=== PATIENT | male | born 1995 | race Asian ===

== ENCOUNTER 2020-02-28 11:04 | Emergency (ER) | payer SELFPAY ==
[~2020-02-28] VITALS: Ht 172.7 cm; Wt 81.6 kg
[~2020-02-28 11:04] MED LIST: IBUPROFEN600 MG ORAL
[2020-02-28 11:23] VITALS: BP 128/80
--- NOTE | 2020-02-28 11:24 | NUR ---
ED Nurse Note: ambulated into ED due to right hand swelling and pain x2days. Per pt, he was playing around with his friend and fell on the right hand. No trauma noted. CMS intact. NAD noted.
--- NOTE | 2020-02-28 11:30 | Emergency Room Report ---
History of Present Illness General Chief Complaint: Upper Extremity Injury Source: Patient Present Illness HPI Disclaimer: Please note that this report is being documented using DRAGON technology. This can lead to erroneous entry secondary to incorrect interpretation by the dictating instrument. HPI: 24-year-old [id number] male presents for evaluation of right hand pain and swelling. 2 days ago he was wrestling with a friend fell onto his right hand. Noted pain over the fourth and fifth digits and swelling over the dorsum of the hand. Denied pain in the thumb or index finger. Mild pain in the wrist. Took an onic-ctk-rlufxra anti-inflammatory without significant relief. Worsening swelling today. Denies numbness or tingling. No prior history of injury. Allergies: Coded Allergies: No Known Allergies (Unverified , 02/26/15) COVID-19 Screening Contact w/high risk pt: No Recent Travel to affected area: No Experienced COVID-19 symptoms?: No Nursing Documentation-[facility] Past Medical History: No Stated History Hx Cardiac Problems: Yes Review of Systems All Other Systems: negative except mentioned in HPI Physical Exam Vital Signs Date Time Temp Pulse Resp B/P (MAP) Pulse Ox O2 Delivery O2 Flow Rate FiO2 02/28/20 11:10 98.4 74 18 128/80 (96) 97 Room Air General: Awake and alert, no acute distress HEENT: NC/AT. EOMI. Resp: Normal work of breathing Skin: Intact. No abrasions, laceration or rash over the exposed skin MSK: Normal tone and bulk. Moving all extremities. Swelling and minor bruising over the dorsum of the right hand over the fourth and fifth metacarpals. Able to flex and extend all digits. No tenderness in anatomic snuffbox. Mild restriction on wrist flexion extension secondary to pain. No obvious deformity noted in the wrist. Neuro: Awake and alert. Mentating appropriately Procedures Splinting Splinting : Consent: Verbal Hand-Made Type: plaster Splint: ulnar Pre-Proc Neuro Vasc Exam: normal Patient Tolerated: Well Complications: None Medical Decision Making Diagnostic Impression: Primary Impression: Fracture of fourth metacarpal bone Additional Impression: Fracture of fifth metacarpal bone ER Course 24-year-old male presenting for evaluation of right hand pain and swelling. Given concern for fracture and x-ray was ordered of the right hand and wrist. X -ray shows fracture of the proximal fourth and fifth metacarpals with minimal displacement. Discussed with orthopedic surgery. He will be placed in an ulnar gutter splint and follow-up with orthopedics in 1 week for casting and reevaluation. Copies of his images will be provided on his discharge. Discussed need for follow-up and reasons to return to the emergency department. He understands and agrees with the treatment plan. Other X-Ray Diagnostic Results Other X-Ray Diagnostic Results #1: X-Ray ordered: Right hand # of Views/Limited Vs Complete: Complete Indication: Pain EP Interpretation: Yes Interpretation: other - Fracture of the fourth and fifth metacarpals Impression: Other - Fourth and fifth metacarpal fractures Electronically Signed by: Electronically signed by Dr. Jeffery Mathews Other X-Ray Diagnostic Results #2: X-Ray ordered: Left wrist # of Views/Limited Vs Complete: Complete Indication: Pain Interpretation: other - Fracture of fourth and fifth metacarpals, no obvious wrist injury Impression: Other - Fracture of fourth and fifth metacarpals Electronically Signed by: Electronically signed by Dr. Jeffery Mathews Last Vital Signs Date Time Temp Pulse Resp B/P (MAP) Pulse Ox O2 Delivery O2 Flow Rate FiO2 02/28/20 11:23 98.4 74 18 128/80 97 Room Air Disposition: HOME, SELF-CARE Condition: Stable Scripts Hydrocodone Bit/Acetaminophen 5-325* (NORCO 5-325 TABLET*) 1 Each Tablet 1 TAB ORAL Q6H PRN for FOR PAIN, #10 TAB 0 Refills Prov: Jeffery Mathews MD 02/28/20 Ibuprofen* (MOTRIN*) 600 Mg Tablet 600 MG ORAL Q6H PRN for For Pain, #30 TAB 0 Refills Prov: Jeffery Mathews MD 02/28/20 Jeffery Mathews MD Feb 28, 2020 11:30
[2020-02-28] MEDS ORDERED: NORCO 5-325 TA1 EAC1 ORAL (12:54)
[2020-02-28] MEDS ORDERED: IBUPROFEN600 M1 ORAL (12:54)
[2020-02-28 13:27] VITALS: BP_SYST 125; BP_SYST 128; BP_DIAS 75; BP_DIAS 80
--- NOTE | 2020-02-28 13:27 | NUR ---
ED Nurse Note: Pt cleared by health care Provider for discharge. Splint done by FARTUN Bey. DC instructions/prescription was given and explained to pt and verbalized understanding of teachings. All medical deviecs such as ID band removed. Pt is AAO x4, ambulatory and left with all personal belongings. Denies any pain at this time.
--- NOTE | 2020-02-28 15:15 | Diagnostic Imaging Report ---
Indication: Trauma, pain Technique: 3 views right hand Comparison: none Findings: There are nondisplaced minimally angulated fractures of the bases of the fourth and fifth metacarpals. No other acute fractures. No dislocations. The joint spaces are preserved. Impression: Positive for fourth and fifth metacarpal fractures This agrees with the preliminary interpretation reported by the emergency room physician in the electronic medical record
--- NOTE | 2020-02-28 15:16 | Diagnostic Imaging Report ---
Clinical Indication:Pain, status post trauma Technique: 3 views of the right wrist Comparison: None Findings: There are nondisplaced minimally angulated fractures of the bases of the fourth and fifth metacarpals. There is dorsal soft tissue swelling. No carpal fracture or distal radial or ulnar fracture demonstrated. Impression: Positive for fourth and fifth metacarpal fracture
== END 2020-02-28 13:28 | disposition home or self-care (01) ==
LOC: EMR 11:36
DX: S62.344A Nondisplaced fracture of base of fourth metacarpal bone, right hand, initial encounter for closed fracture (principal); S62.346A Nondisplaced fracture of base of fifth metacarpal bone, right hand, initial encounter for closed fracture; Y93.72 Activity, wrestling; Y92.9 Unspecified place or not applicable
CPT/HCPCS: 29125; 99283

== ENCOUNTER 2020-03-03 15:29 | Emergency (ER) | payer SELFPAY ==
[~2020-03-03] VITALS: Ht 172.7 cm; Wt 81.6 kg
[~2020-03-03 15:29] MED LIST changes: +IBUPROFEN600 M1 ORAL; +NORCO 5-325 TA1 EAC1 ORAL
--- NOTE | 2020-03-03 15:35 | NUR ---
ED Nurse Note: PT walked in to ED for racture to right hand. pt was seen here couple day ago with splint. pt states broke his splint yesterday
[2020-03-03 15:38] VITALS: BP 120/70
--- NOTE | 2020-03-03 15:45 | Emergency Room Report ---
History of Present Illness General Chief Complaint: Upper Extremity Injury Source: Patient Present Illness HPI 24-year-old male presents to the emergency department requesting reapplication of his splint for his right hand. Patient sustained a metacarpal fracture on his right hand fourth 4 days ago. Patient states that he was "messing around "and he broke his splint. Patient is not currently utilizing any type of immobilization device. Patient reports he is right-hand dominant. He reports 7 out of 10 severity pain. He denies additional trauma or fall. Denies numbness tingling or loss of sensation or gross motor movements of the affected extremity. He states he has not followed up for his initial injury with a PCP or Ortho. He states he was given an orthopedic referral upon d/c from ED. Allergies: Coded Allergies: No Known Allergies (Unverified , 02/26/15) COVID-19 Screening Contact w/high risk pt: No Recent Travel to affected area: No Experienced COVID-19 symptoms?: No Patient History Past Medical History: see triage record Past Surgical History: none Pertinent Family History: none Reviewed Nursing Documentation: PMH: Agreed; PSxH: Agreed Nursing Documentation-PMH Past Medical History: No History, Except For Hx Cardiac Problems: Yes Review of Systems All Other Systems: negative except mentioned in HPI Physical Exam Vital Signs Date Time Temp Pulse Resp B/P (MAP) Pulse Ox O2 Delivery O2 Flow Rate FiO2 03/03/20 15:31 98.1 87 19 119/74 (89) 97 Room Air Sp02 EP Interpretation: reviewed, normal General Appearance: no apparent distress, alert, GCS 15, non-toxic Head: normocephalic, atraumatic Eyes: bilateral eye normal inspection, bilateral eye PERRL ENT: hearing grossly normal, normal voice Neck: full range of motion Respiratory: lungs clear, normal breath sounds, speaking full sentences Cardiovascular #1: regular rate, rhythm, normal capillary refill Cardiovascular #2: 2+ radial (R), 2+ radial (L) Musculoskeletal: normal range of motion, gait/station normal, tender - Right lateral hand with swelling and healing bruising. NVI. , other - Pt. presents not using any type of immobilization device. He is noted to be using affected extremity. Neurologic: alert, motor strength/tone normal, oriented x3, sensory intact, responsive, speech normal Psychiatric: judgement/insight normal Skin: Ecchymosis/Bruising - lateral aspect of the right hand/ 4th and 5th metacarpals. Medical Decision Making PA Attestation Dr. Golden is my supervising Physician whom patient management has been discussed with. Diagnostic Impression: Primary Impression: Problem with immobilizing cast ER Course 24-year-old male presents to the emergency department requesting reapplication of his splint for his right hand. Patient sustained a metacarpal fracture on his right hand fourth 4 days ago. Patient states that he was "messing around "and he broke his splint. Patient is not currently utilizing any type of immobilization device. Patient reports he is right-hand dominant. He reports 7 out of 10 severity pain. He denies additional trauma or fall. Denies numbness tingling or loss of sensation or gross motor movements of the affected extremity. He states he has not followed up for his initial injury with a PCP or Ortho. He states he was given an orthopedic referral upon d/c from ED. Ddx considered but are not limited to Fracture, dislocation, contusion, Sprain/ Strain/Spasm, malalignment/ poor healing, non-compliance with d/c instructions Vital signs: are WNL, pt. is afebrile H&PE are most consistent with need for reapplication of immobilization device in addition to noncompliance with discharge instructions to follow-up with orthopedist. ORDERS: - X-ray - not required at this time. ED INTERVENTIONS: -right ulnar gutter splint applied by earth science technical officer. Pt. remains neurovascularly intact. DISCHARGE: At this time pt. is stable for d/c to home. Will provide printed patient care instructions, and any necessary prescriptions. Care plan and follow up instructions have been discussed with the patient prior to discharge. Last Vital Signs Date Time Temp Pulse Resp B/P (MAP) Pulse Ox O2 Delivery O2 Flow Rate FiO2 03/03/20 15:31 98.1 87 19 119/74 (89) 97 Room Air Disposition: HOME, SELF-CARE Condition: Stable Referrals: [facility] Patient Instructions: Boxer's Fracture, Cast or Splint Care, [id number] Additional Instructions: Take previously prescribed medications as directed. IT IS IMPERATIVE THAT YOU Follow up with an TIMBER INSPECTOR within 3-5 days, FAILURE TO COMPLY WITH FOLLOW UP INSTRUCTIONS WILL LEAD TO POOR OUTCOMES OF YOUR FRACTURE. THIS IS YOUR DOMINANT HAND AND IF NOT CARED FOR APPROPRIATELY CAN HAVE PERMANENT DAMAGE/LIMITED MOBILITY. --Please review list of primary care clinics, if you do not already have a primary care provider who can give you an Orthopedic Referral. ORTHOPEDIC URGENT CARE INFORMATION IS ALSO PROVIDED ON NEXT PAGE. Return sooner to ED if new symptoms occur, or current symptoms become worse. - Please note that this Emergency Department Report was dictated using [employer] builder technology software, occasionally this can lead to erroneous entry secondary to interpretation by the dictation equipment. Mojgan Mccoy Mar 03, 2020 15:45
--- NOTE | 2020-03-03 15:54 | NUR ---
ED Nurse Note: ulnar gutter splint being applied by industrial technology education teacher.
[2020-03-03 16:31] VITALS: BP 126/74
--- NOTE | 2020-03-03 16:31 | NUR ---
ER DISCHARGE NOTE: Patient is cleared to be discharged per ERMD, pt is aox4, on room air, with stable vital signs. pt was given dc and prescription instructions, pt was able to verbalize understanding, pt id band removed without complications. pt is able to ambulate with steady gait. pt took all belongings.
== END 2020-03-03 16:31 | disposition home or self-care (01) ==
LOC: EMR 16:00
DX: S62.304A Unspecified fracture of fourth metacarpal bone, right hand, initial encounter for closed fracture (principal); X58.XXXA Exposure to other specified factors, initial encounter; Y92.9 Unspecified place or not applicable; S60.041A Contusion of right ring finger without damage to nail, initial encounter; S60.051A Contusion of right little finger without damage to nail, initial encounter
CPT/HCPCS: 29130; 99282